=== PATIENT | male | born 1995 ===

== ENCOUNTER 2019-03-31 23:24 | Emergency (ER) | payer OTHER ==
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
[2019-04-01 01:00] VITALS: BP 133/93
[2019-04-01] MEDS ORDERED: CEPH500C24 PO (01:06)
[2019-04-01] MEDS ORDERED: CEPHALEXIN 500 MG CAP TH 2 CAP/BOTTLE PO ONE (01:10)
== END 2019-04-01 01:18 | disposition home or self-care (01) ==
LOC: ER 23:50
DX: S01.01XA Laceration without foreign body of scalp, initial encounter (principal); V19.9XXA Pedal cyclist (driver) (passenger) injured in unspecified traffic accident, initial encounter
CPT/HCPCS: 99283

== ENCOUNTER → 2019-03-31 | Outpatient (CLI) | payer OTHER ==
[~2019-03-31] MED LIST: CEPH500C24 PO
== END ==
LOC: AMB 23:11
PROVIDERS: ATTEND Nurse Practitioner
DX: S01.01XA Laceration without foreign body of scalp, initial encounter (principal)
CPT/HCPCS: A0425; A0429